=== PATIENT | male | born 1985 | race Caucasian/White ===

== ENCOUNTER → 2016-10-02 | Outpatient (CLI) | payer BC ==
[~2016-10-02] MED LIST: CLR500T PO; FLUT16SP NS
[2016-10-02 10:53] VITALS: BP 115/74
--- NOTE | 2016-10-02 10:53 | Urgent Care T Sheet Gen (E) ---
Intake General Temperature (Fahrenheit): 97.3 Pulse: 105 Blood Pressure Systolic: 115 Blood Pressure Diastolic: 74 Respirations: 20 SPO2: 98 Chief Complaint: UC Ear/Nose/Throat Complaint Description of Symptoms Complains of cough sore throat head congestion x 1 week. Coughing up thick yellow phlegm. He works at the [employer] in [place]. No high fevers, he is here visiting family . He gets allergy and sinus infections occasionally. His son has been sick with similar illness, no body aches no SOB no h/o asthma Source: Patient History of Present Illness Onset & Duration: Weeks Associated Symptoms: Cough, Nasal congestion, Sinus congestion Recent Trauma: No Allergies: Coded Allergies: Penicillins (Verified Allergy, 10/02/16) Respiratory Constitutional Symptoms: No Fever EENTM: Ear pain (pops and crackles) Nose Congestion Throat pain Other (sinus pressure and headaches) Respiratory: Cough (coughs up thick yellow phlegm no blood) Cardiovascular: No symptoms reported Gastrointestinal/Abdominal: No symptoms reported Genitourinary: No symptoms reported All Other Systems Reviewed Remaining Systems: All other systems reviewed with negative findings Past Acxaqla-Woblbr-Nkydcb Hx Patient's Social History Alcohol Use: Denies Use Recreational Drug Use: Denies Use Surgeries/Hospitalizations Hospitalization/Surgery Hx: healthy Physical Exam Physical Exam General Appearance: WD/WN No apparent distress Eyes, Ears, Nose, Throat Ex: PERRL/EOMI TM abnormal (R) (dull fluid) TM abnormal (L) (dull fluid) Pharyngeal erythema (moderate with tonsils swollen, drainage seen posterior pharynx) Neck Exam: Full range of motion Supple Normal inspectionNo Lymphadenopathy Respiratory Exam: Lungs clear Normal breath sounds No respiratory distress No accessory muscles usedNo Accessory muscle use, No Wheezes Cardiovascular Exam: Regular rate, rhythm No murmur Skin Exam: Normal color Warm/dry/intact No rashes Neurologic/Psychiatric Exam: Oriented times 4 CN's II-X nml Departure Urgent Care Impression Chief Complaint: UC Ear/Nose/Throat Complaint Impression: Primary Impression: Sinusitis Qualified Code: J01.10 - Acute frontal sinusitis, unspecified Departure Disposition: HOME OR SELF-CARE Condition: Stable Additional Instructions: Long talk with him- he states Biaxin works best for him for infections Tylenol for pain or fever rest hydrate f/u PCP when he gets back to [place] if having trouble still change tooth brush in 48 hours He agrees to plan of care Scripts Fluticasone Propionate 16 Gm Kimberly.susp16 Gm NS DAILY #1 BTL 2 sprays each nare daily Prov:KIA FAJARDO APRN () 10/02/16 Clarithromycin (Biaxin)500 Mg Vun657 Mg PO BID #20 TAB Prov:KIA AFJARDO APRN () 10/02/16 End of report . KIA FAJARDO APRN () Oct 02, 2016 10:53
== END ==
LOC: MHUC 10:32
PROVIDERS: ATTEND Nurse Practitioner
DX: J01.10 Acute frontal sinusitis, unspecified (principal)
CPT/HCPCS: 99213